=== PATIENT | female | born 1950 | race Caucasian/White ===

== ENCOUNTER 2023-04-14 15:57 | Emergency (ER) | payer MEDICARE, OTHER, SELFPAY ==
[2023-04-14 16:05] VITALS: BP 121/58; PULSE 70; RESP 16; TEMP 36.9; O2SAT 99
--- NOTE | 2023-04-14 17:34 | ED.EYEPROB ---
HPI - Eye Problem General Chief complaint: Eye Problems Stated complaint: Left Eye Problem Time Seen by Provider: 04/14/23 17:37 Source: patient, RN notes reviewed and old records reviewed Mode of arrival: ambulatory Limitations: no limitations History of Present Illness HPI Narrative: 72 year old female who presents to express care with complaints of left eye redness and discomfort since yesterday with left eye matted shut this morning, Patient reports that she has had yellowish mucoid drainage from her left eye today continuously. Patient reports no fevers, no cold or any URI symptoms or any known fevers. Patient denies any sharp pain to her left eye or any visual changes.Patient reports that she has applied compresses to her left eye. MD chief complaint: eye redness and other (Eye drainage) Onset (ago): day(s) (Since yesterday) Duration: progressively worsening Location: left eye Eye Symptoms: burning, redness, itching and discharge Severity scale (1-10): 5 Treatments Prior to Arrival: other (Warm compresses, cold compresses) Related Data Home Medications Medication Instructions Recorded Confirmed aspirin 81 mg tablet,delayed 81 mg PO DAILY 04/14/23 04/14/23 release (Adult Low Dose Aspirin) atorvastatin 80 mg tablet 80 mg PO DAILY 04/14/23 04/14/23 clopidogrel 75 mg tablet 75 mg PO DAILY 04/14/23 04/14/23 ezetimibe 10 mg tablet 10 mg PO DAILY 04/14/23 04/14/23 furosemide 40 mg tablet 40 mg PO DAILY 04/14/23 04/14/23 inclisiran 284 mg/1.5 mL 284 mg subcut [id number] 04/14/23 04/14/23 subcutaneous syringe (Leqvio) metoprolol succinate 100 mg 100 mg PO DAILY 04/14/23 04/14/23 tablet,extended release 24 hr oxybutynin chloride 10 mg 10 mg PO DAILY 04/14/23 04/14/23 tablet,extended release 24 hr pantoprazole 40 mg tablet,delayed 40 mg PO QAM 04/14/23 04/14/23 release potassium chloride 20 mEq oral 20 meq PO BID 04/14/23 04/14/23 packet Allergies Allergy/AdvReac Type Severity Reaction Status Date / Time lisinopril Allergy Unknown Swelling Verified 04/14/23 16:40 codeine AdvReac Unknown Nausea and Verified 04/14/23 16:40 Vomiting Review of Systems Review of Systems: CONSTITUTIONAL: Denies fever, chills, or sweats. EYES: Denies visual changes. Reports redness,, irritation, discharge.To left eye ENT: Denies rhinorrhea, congestion, sore throat, or otalgia. CARDIOVASCULAR: Denies chest pain, palpitations, or edema. RESPIRATORY: Denies cough or dyspnea. SKIN: Denies rash or itching. NEUROLOGIC: Denies headache All systems reviewed & are unremarkable except as noted in HPI and below PMFSH Past Medical History Medical History (Updated 04/17/23 @ 11:51 by Debbie Hood NP) Hyperlipidemia Hypertension Pacemaker Surgical History Surgical History (Updated 04/17/23 @ 11:36 by Debbie Hood NP) History of open heart surgery 2 vessel bypass graft Mitral valve replaced Social History Social History (Updated 04/17/23 @ 11:46 by Debbie Hood NP) Smoking status: Never smoker Alcohol intake: current Alcohol use details: rare Substance use type: does not use Living arrangements: with family Gender identity (if verbalized by the patient): Female Comments At time of signature, agree with nursing past medical, surgical, social and family history. There is no relevant family history pertinent to the presenting complaint Exam Narrative: GENERAL: Well-appearing, well-nourished, and in no acute distress. HEAD: Normocephalic, atraumatic. EYES: PERRLA and EOMI. Upper and lower eyelids unremarkable. No periorbital cellulitis noted. Sclera and conjunctivae injected to left eye with .mucous drainage. Denies sharp eye pain or any visual changes. ENT: Nares clear, no rhinorrhea or epistaxis. Mucous membranes moist. NECK: Supple.no lymphadenopathy CHEST: Clear to auscultation. No respiratory distress.SAO2 99% on room air HEART: Regular rate and rhythm. No murmur heard. Normal jose e
== END 2023-04-14 17:45 | disposition home or self-care (01) ==
PROVIDERS: Emergency Provider Registered Nurse; PCP Family Medicine
DX: H10.9 Unspecified conjunctivitis (principal); E78.5 Hyperlipidemia, unspecified; I10 Essential (primary) hypertension; Z95.0 Presence of cardiac pacemaker; Z95.5 Presence of coronary angioplasty implant and graft; Z95.2 Presence of prosthetic heart valve
CPT/HCPCS: 99203; G0463